=== PATIENT | female | born 1950 | race Caucasian/White ===

== ENCOUNTER → 2018-06-24 19:03 | Outpatient (REF) | payer MEDICARE, SELFPAY ==
[2018-06-24 19:32] LABS: Uric Acid 4.2 mg/dL (2.5-6.2)
[2018-06-24 19:38] LABS: Rheumatoid Factor < 8.6 IU/mL (<12.0)
[2018-06-24 19:43] LABS: Erythrocyte Sedimentation Rate 7 MM/HR (0-20)
[2018-06-27 20:56] LABS: ANA Pattern Homogeneous; ANA Screen, IFA Positive (Negative); ANA Titer 1:40 titer (<1:40)
== END ==
LOC: LAB 19:03
PROVIDERS: PCP Family Medicine Geriatric Medicine; Visit Provider Family Medicine Geriatric Medicine
DX: M19.90 Unspecified osteoarthritis, unspecified site (principal); M79.7 Fibromyalgia
CPT/HCPCS: 36415; 84550; 85651; 86038; 86430

== ENCOUNTER → 2021-10-10 09:54 | Outpatient (CLI) | payer OTHER, MEDICARE, BC, SELFPAY ==
--- NOTE | 2021-10-10 10:45 | DI.RAD.S_ITS ---
PROCEDURE: XR LUMBAR SPINE MIN 4V INDICATIONS: BACK PAIN TECHNIQUE: 5 views of the lumbar spine were acquired, including bilateral oblique views. COMPARISON: None. FINDINGS: There are 5 [id number] lumbar type vertebral bodies. Mild left lateral listhesis of L3 on L4 measuring approximately 3 mm. Straightening of the usual lumbar lordosis. No anterolisthesis or retrolisthesis identified on the lateral view. There is disc height loss at L2-L3, L3-L4, L4-L5, and L5-S1 with associated vacuum disc phenomenon and endplate sclerotic changes and osteophytic ridging of the endplates. Facet hypertrophy at these levels is also present. Oblique views demonstrate at least moderate to severe neural foraminal stenosis at L3-L4, L4-L5, and L5-S1. IMPRESSION: Moderate to severe lower lumbar spine degenerative changes. Dictated by: Bo Velasquez M.D. on 10/10/2021 at 12:24 Approved by: Bo Velasquez M.D. on 10/10/2021 at 12:25
== END ==
PROVIDERS: PCP Student in an Organized Health Care Education/Training Program; Referring Provider Physical Medicine & Rehabilitation; Visit Provider Physical Medicine & Rehabilitation
DX: M47.817 Spondylosis without myelopathy or radiculopathy, lumbosacral region (principal); M47.816 Spondylosis without myelopathy or radiculopathy, lumbar region; M51.26 Other intervertebral disc displacement, lumbar region; M54.9 Dorsalgia, unspecified; G89.4 Chronic pain syndrome; Z98.84 Bariatric surgery status
CPT/HCPCS: 72110; 99215

== ENCOUNTER 2021-10-25 12:14 | Outpatient (CLI) | payer OTHER, SELFPAY ==
[2021-10-25] VITALS (8 sets, daily range): BP systolic 127–151; BP diastolic 66–91; PULSE 64–82; RESP 10–22; TEMP 36.5; O2SAT 97–100
--- NOTE | 2021-10-25 13:48 | DI.RAD.S_ITS ---
PROCEDURE: PAIN L/S FACET INJ/BLK 1ST DIANNA COMPARISON: None. INDICATIONS: SPONDYLOSIS FINDINGS: A single fluoroscopic image demonstrates present of 4 separate right-sided needles, at L3, L4, L5, and S1, related to a multilevel medial branch block procedure. IMPRESSION: Imaging guidance utilized for multilevel medial branch block procedure. Dictated by: Osmar García M.D. on 10/25/2021 at 17:03 Approved by: Osmar García M.D. on 10/25/2021 at 17:05
[2021-10-25 14:22] LABS: COVID19 -Nasal RAPID Negative (Negative)
[2021-10-25] MEDS: MIDAZOLAM 2 MG/2 ML VIAL IV (14:30)
[2021-10-25] MEDS: IOPAMIDOL 15 ML VIAL 3 ML INJ (14:33)
[2021-10-25] MEDS: BUPIVACAINE 0.5% (PF) VIAL 5 ML INJ (14:33)
[2021-10-25] MEDS: LIDOCAINE 1% (PF) 5 ML INJ (14:33)
--- NOTE | 2021-10-25 14:47 | P.PCN_ITS ---
Date/Time/Diagnoses Date of procedure: 10/25/21 Time of procedure: 14:47 Pre-procedure diagnosis: 1. FACET ARTHROPATHY Post-procedure diagnosis: same Procedure Notes Procedure: 1. BILATERAL- L3, L4, L5 and S1 DIAGNOSTIC MB BLOCKS with LA Anesthetic Indications: Gretel is referred by Dr. Giron for treatment of Bilateral Axial LBP. Physician: Christiano Nayak Total Fluoroscopy time (seconds): 12 Total sedation minutes: 14 Complications: none Procedure in detail & Post-procedure care: DESCRIPTION OF PROCEDURE Fluoroscopically guided, contrast-controlled bilateral L3, L4, L5 and S1 medial branch blocks with 0.5cc of 0.5% Marcaine. Following review of allergy and review of potential side effects and complications, including, but not necessarily limited to, infection, allergic reaction, local tissue breakdown, nerve injury, paralysis, stroke and possible , the patient indicated that the patient understood and agreed to proceed. An informed consent document was signed by the patient, witnessed by a nurse, and placed in the patient's chart. After review of previous anaesthesic history and IV conscious sedation the patient was deemed safe to proceed with today's procedure with IV conscious sedation as ASA class II designation. Safety time-out was performed to confirm patient ID, procedure to be performed and site of procedure. IV sedation was accomplished with a combination of 2mg of Versed was administered by the RN after DO order, titrated to patient comfort during the course of the procedure while the patient remained responsive to all verbal commands In the prone position, following sterile prep and drape of the lumbar region, the right L3, L4, L5 and S1 anatomical location of the medial branch of the dorsal ramus was identified fluoroscopically. Subsequently an anesthetic skin wheal using 1% lidocaine solution was initiated at each of the anatomical spots. Subsequently then a 22-gauge 3.5-inch spinal needle was atraumatically introduced and advanced under fluoroscopic guidance at each of the corresponding sites at the right L3, L4, L5 and S1 MB. After negative aspiration, 0.2cc of Isovue 200 was injected, confirming placement without vascular or intrathecal uptake. Subsequently then 0.5cc of 0.5% Marcaine solution was injected at each of the corresponding sites at the right L3, L4, L5 and S1 medial branch locations. The identical procedure was replicated on the left. The patient tolerated the procedure well without signs or symptoms of complications prior to transfer to the recovery area continued monitoring without incident. Post-procedure, the patient was monitored initiating provocative activities to measure the amount of relief from block of the facetogenic pain. The patient reported a VAS of 7 prior to the procedure and a post-procedure VAS of 1. It has been a pleasure to assist in the diagnostic and therapeutic care of your patient. POST OP INSTRUCTIONS The patient was provided with a Pain Log to complete over the next several hours and subsequent days prior to the patient's follow up with the ordering physician. If the patient has position classification specialist relief to the solution applied, then they may be a candidate for medial branch rhizotomy. The patient is aware, was provided, once again, with a Pain Log and will follow up with the referring physician for review and clinical correlation
== END 2021-10-25 15:31 | disposition home or self-care (01) ==
LOC: RAD 12:17
PROVIDERS: PCP Student in an Organized Health Care Education/Training Program; Referring Provider Physical Medicine & Rehabilitation; Visit Provider Physical Medicine & Rehabilitation
DX: M47.816 Spondylosis without myelopathy or radiculopathy, lumbar region (principal); M47.817 Spondylosis without myelopathy or radiculopathy, lumbosacral region; Z20.822 Contact with and (suspected) exposure to COVID-19
CPT/HCPCS: 64493; 64494; 64495; 87635; 99152; J2250

== ENCOUNTER 2022-02-09 12:45 | Outpatient (CLI) | payer OTHER, SELFPAY ==
[2022-02-09] VITALS (10 sets, daily range): BP systolic 137–175; BP diastolic 70–94; PULSE 61–69; RESP 12–20; TEMP 36.5; O2SAT 97–100
--- NOTE | 2022-02-09 12:46 | DI.RAD.S_ITS ---
PROCEDURE: PAIN L/S FACET INJ/BLK 1ST DIANNA COMPARISON: [facility], XA, PAIN L/S FACET INJ/BLK 1ST DIANNA, 10/25/2021, 14:33. INDICATIONS: SPONDYLOSIS FINDINGS: Fluoroscopic images demonstrate right-sided needle placement overlying L3 through S1. Contrast injection is noted. IMPRESSION: Needle placement as above. Dictated by: Luanne Rodriguez M.D. on 02/09/2022 at 17:23 Approved by: Luanne Rodriguez M.D. on 02/09/2022 at 17:24
[2022-02-09] MEDS: MIDAZOLAM 2 MG/2 ML VIAL IV (14:20)
[2022-02-09] MEDS: BUPIVACAINE 0.5% (PF) VIAL 5 ML SUBCUT (14:30)
[2022-02-09] MEDS: LIDOCAINE 1% 20 ML 6 ML INJ (14:31)
[2022-02-09] MEDS: IOPAMIDOL 15 ML VIAL 3 ML INJ (14:31)
--- NOTE | 2022-02-09 14:37 | PM.PROC.IR.1 ---
Date/Time/Diagnoses Date of procedure: 02/09/22 Time of procedure: 14:37 Pre-procedure diagnosis: 1. FACET ARTHROPATHY Post-procedure diagnosis: same Procedure Notes Procedure: 1. BILATERAL- L3, L4, L5 and S1 DIAGNOSTIC MB BLOCKS with SA Anesthetic Indications: Gretel is referred by Dr. Giron for treatment of Bilateral Axial LBP. Physician: Christiano Nayak Total Fluoroscopy time (seconds): 12 Total sedation minutes: 17 Complications: none Procedure in detail & Post-procedure care: DESCRIPTION OF PROCEDURE Fluoroscopically guided, contrast-controlled bilateral L3, L4, L5 and S1 medial branch blocks with 0.5cc of 2% Lidocaine. Following review of allergy and review of potential side effects and complications, including, but not necessarily limited to, infection, allergic reaction, local tissue breakdown, nerve injury, paralysis, stroke and possible , the patient indicated that the patient understood and agreed to proceed. An informed consent document was signed by the patient, witnessed by a nurse, and placed in the patient's chart. After review of previous anaesthesic history and IV conscious sedation the patient was deemed safe to proceed with today's procedure with IV conscious sedation as ASA class II designation. Safety time-out was performed to confirm patient ID, procedure to be performed and site of procedure. IV sedation was accomplished with a combination of 2mg of Versed was administered by the RN after DO order, titrated to patient comfort during the course of the procedure while the patient remained responsive to all verbal commands In the prone position, following sterile prep and drape of the lumbar region, the right L3, L4, L5 and S1 anatomical location of the medial branch of the dorsal ramus was identified fluoroscopically. Subsequently an anesthetic skin wheal using 1% lidocaine solution was initiated at each of the anatomical spots. Subsequently then a 22-gauge 3.5-inch spinal needle was atraumatically introduced and advanced under fluoroscopic guidance at each of the corresponding sites at the right L3, L4, L5 and S1 MB. After negative aspiration, 0.2cc of Isovue 200 was injected, confirming placement without vascular or intrathecal uptake. Subsequently then 0.5cc of 2% Lidocaine solution was injected at each of the corresponding sites at the right L3, L4, L5 and S1 medial branch locations. The identical procedure was replicated on the left. The patient tolerated the procedure well without signs or symptoms of complications prior to transfer to the recovery area continued monitoring without incident. Post-procedure, the patient was monitored initiating provocative activities to measure the amount of relief from block of the facetogenic pain. The patient reported a VAS of 8 prior to the procedure and a post-procedure VAS of 2. It has been a pleasure to assist in the diagnostic and therapeutic care of your patient. POST OP INSTRUCTIONS The patient was provided with a Pain Log to complete over the next several hours and subsequent days prior to the patient's follow up with the ordering physician. If the patient has education rn relief to the solution applied, then they may be a candidate for medial branch rhizotomy. The patient is aware, was provided, once again, with a Pain Log and will follow up with the referring physician for review and clinical correlation
== END 2022-02-09 14:58 | disposition home or self-care (01) ==
LOC: RAD 12:46
PROVIDERS: PCP Student in an Organized Health Care Education/Training Program; Referring Provider Physical Medicine & Rehabilitation; Visit Provider Physical Medicine & Rehabilitation
DX: M47.816 Spondylosis without myelopathy or radiculopathy, lumbar region (principal); M47.817 Spondylosis without myelopathy or radiculopathy, lumbosacral region
CPT/HCPCS: 64493; 64494; 64495; 99152; J2250

== ENCOUNTER 2022-09-07 11:48 | Outpatient (CLI) | payer OTHER, SELFPAY ==
[2022-09-07] VITALS (8 sets, daily range): BP systolic 129–178; BP diastolic 70–85; PULSE 68–83; RESP 14–21; O2SAT 95–100
--- NOTE | 2022-09-07 11:50 | DI.RAD.S_ITS ---
PROCEDURE: PAIN L INTERLAMINAR/CAUDAL INJ INDICATIONS: SPONDYLOSIS COMPARISON: None. FINDINGS: Fluoroscopic spot filming was performed to verify placement of spinal needles at the L3 level(s), as labeled on the films. Appropriate location(s) of the needle tip(s) was confirmed by injection of iodinated contrast. IMPRESSION: Fluoroscopic views during epidural steroid injection. Dictated by: Jun Rudolph M.D. on 09/07/2022 at 15:43 Approved by: Jun Rudolph M.D. on 09/07/2022 at 15:43
--- NOTE | 2022-09-07 13:15 | PC.NURSE ---
Patient reports that she had a TIA on Monday 09/04 went to ER on [address] and was airlifted to [facility] in [place]. She states that they gave her Plavix and statins. She had no control of the right side of her body but reports that within a few hours her function returned. has been notified. She was d/c home on Sunday.
[2022-09-07] MEDS: MIDAZOLAM 2 MG/2 ML VIAL IV (13:32)
[2022-09-07] MEDS: BETAMETHASONE 30 MG/5 ML MDV 6 MG INJ (13:39)
[2022-09-07] MEDS: DEXAMETHASONE 10 MG/ML VIAL 20 MG INJ (13:40)
[2022-09-07] MEDS: BUPIVACAINE 0.25% (PF) VIAL 2 ML INJ (13:40)
[2022-09-07] MEDS: IOPAMIDOL 15 ML VIAL 3 ML INJ (13:40)
--- NOTE | 2022-09-07 13:50 | P.PCN_ITS ---
Date/Time/Diagnoses Date of procedure: 09/07/22 Time of procedure: 13:50 Pre-procedure diagnosis: 1. HNP WITH RADICULAR FEATURES, 2. MULTILEVEL CENTRAL STENOSIS, Post-procedure diagnosis: same Procedure Notes Procedure: 1. FLUOROSCOPICALLY GUIDED CONTRAST CONTROLLED INTERLAMINAR EPIDURAL STEROID INJECTION - L3/4 Indications: Gretel is referred by Dr. Giron for treatment of Bilateral Foraminal Stenosis L>R LE symptoms. Physician: Christiano Nayak Total Fluoroscopy time (seconds): 11 Total sedation minutes: 13 Complications: none Procedure in detail & Post-procedure care: FINDINGS Multilevel Central Spinal Stenosis with Nerve Root Compression DESCRIPTION OF PROCEDURE Fluoroscopically guided, contrast-controlled L3/4 translaminar epidural steroid injection. Following review of allergy and review of potential side effects and complications, including, but not necessarily limited to, infection, allergic reaction, local tissue breakdown, temporary as well as permanent nerve injury, paralysis, stroke and possible , the patient indicated that the patient understood and agreed to proceed. An informed consent document was signed by the patient, witnessed by a nurse, and placed in the patient's chart. Additionally, other treatment options including modalities, medications, and physical therapy were reviewed with the patient. After review of previous anaesthesic history and IV conscious sedation the patient was deemed safe to proceed with today?s procedure with IV conscious sedation as ASA class II designation. Safety time-out was performed to confirm patient ID, procedure to be performed and site of procedure. IV sedation was accomplished with a combination of 2mg of Versed was administered by the RN after DO order, titrated to patient comfort during the course of the procedure while the patient remained responsive to all verbal commands. In the prone position, following sterile prep and drape of the lumbar region, the L3/4 translaminar space was identified fluoroscopically. The skin was anesthetized via a 25-gauge, 1.5-inch needle with 1% lidocaine solution. At this point, a 22-gauge short bevel spinal needle was atraumatically introduced and advanced under fluoroscopic guidance into the region of the L3/4 translaminar space. Depth was confirmed on lateral view. Radiological data, including multiple fluoroscopic views of the lumbar spine, reveal a spinal needle at the L3/4 translaminar space. Lateral views then show placement of the needle in the epidural space. Subsequent views show contrast material flowing superiorly and inferiorly in the epidural space. No vascular or intrathecal uptake is observed. At this point, using loss of resistance technique with saline and air, the epidural space was entered. This was confirmed following negative aspiration with injection of approximately 1.5 cc of Isovue 200, showing excellent epidural flow without vascular or intrathecal uptake. At this point, 1cc of 1% lidocaine solution combined with 3cc or 20mg of dexamethasone and 6mg of betamethasone was injected without incident. The patient tolerated the procedure well without signs or symptoms of complications prior to transfer to the recovery area continued monitoring without incident. The patient was then transferred to the recovery area where they were observed for an appropriate period of time after the injection. The patient reported a VAS score of 8 prior to the procedure and a post- procedure VAS of 0. POST OP INSTRUCTIONS The patient was provided a Pain Log to continue to record their response to the target-specific procedure prior to follow-up visit with their referring physician. Additionally, specific post-injection care instructions and a contact number to our office were provided if concerns arise regarding possible complications associated with the procedure are suspected.
== END 2022-09-07 14:05 | disposition home or self-care (01) ==
LOC: RAD 11:50
PROVIDERS: PCP Student in an Organized Health Care Education/Training Program; Referring Provider Physical Medicine & Rehabilitation; Visit Provider Physical Medicine & Rehabilitation
DX: M51.26 Other intervertebral disc displacement, lumbar region (principal); M48.061 Spinal stenosis, lumbar region without neurogenic claudication
CPT/HCPCS: 62323; 99152; J0702; J1100; J2250; J3490